=== PATIENT | female | born 2005 | race Caucasian/White ===

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

== ENCOUNTER → 2024-04-30 | Outpatient (CLI) | payer OTHER ==
[~2024-04-30] MED LIST changes: +ONDA-282 PO; -ONDA4TAB6 PO
[2024-04-30 14:35] LABS: BASO # 0.1 10^3/uL (0.0-0.2); BASO % 0.7 % (0.0-1.0); EOS # 0.2 10^3/uL (0.0-0.5); EOS % 2.3 % (0.0-3.0); HEMATOCRIT 37.6 % (36.0-47.0); HEMOGLOBIN 12.8 g/dl (12.0-15.5); LYMPH # 2.8 10^3/uL (1.5-5.0); LYMPH % 27.2 % (24.0-44.0); MEAN CORPUSCULAR HEMOGLOBIN 29.4 pg (27.0-33.0); MEAN CORPUSCULAR VOLUME 86.4 fl (80.0-96.0); MONO # 0.6 10^3/uL (0.0-0.8); MONO % 6.2 % (2.0-8.0); NEUTROPHILS # 6.4 10^3/uL (1.5-8.5); NEUTROPHILS % 63.1 % (36.0-66.0); PLATELET COUNT, AUTOMATED 395 10^3/uL (150-450); RED BLOOD COUNT 4.35 10^6/uL (4.00-5.40); WHITE BLOOD COUNT 10.2 10^3/uL (4.0-10.0)
[2024-04-30 14:51] LABS: HEMOGLOBIN A1c 5.1 % (4.0-6.0)
[2024-04-30 15:00] LABS: CHOLESTEROL RISK RATIO 3.83 (<5); HDL CHOLESTEROL 54.2 MG/DL (>40); NON-HDL-C 153.8 MG/DL
[2024-04-30 15:03] LABS: FREE T4 1.1 NG/DL (0.83-1.43); THYROID STIMULATING HORMONE 2.057 uIU/ML (0.48-4.17); TOTAL 25(OH) VITAMIN D 18.4 NG/ML (20.0-100.0)
== END ==
LOC: M LAB 14:03
PROVIDERS: ATTEND Physician Assistant
DX: Z00.00 Encounter for general adult medical examination without abnormal findings (principal)